=== PATIENT | male | born 2000 | race Caucasian/White ===

== ENCOUNTER 2020-06-27 16:42 | Emergency (ER) | payer OTHER ==
[~2020-06-27] VITALS: Ht 180.3 cm; Wt 145.1 kg
[2020-06-27] MEDS ORDERED: HYDROCODONE/APAP 10MG-325MG TAB PO STA (16:49)
[2020-06-27] MEDS ORDERED: NAPROXEN250 MG PO (19:29)
== END 2020-06-27 19:51 | disposition home or self-care (01) ==
LOC: ER 16:50
DX: S90.31XA Contusion of right foot, initial encounter (principal); W20.8XXA Other cause of strike by thrown, projected or falling object, initial encounter; Y99.0 Civilian activity done for income or pay
CPT/HCPCS: 99283